=== PATIENT | female | born 1940 | race Caucasian/White ===

== ENCOUNTER 2016-07-29 21:11 | Emergency (ER) | payer MEDICARE | END 2016-07-29 23:39 | disposition home or self-care (01) | LOC: FER 21:11 | DX: B02.8 Zoster with other complications (principal); I83.93 Asymptomatic varicose veins of bilateral lower extremities; E11.9 Type 2 diabetes mellitus without complications; I10 Essential (primary) hypertension; Z88.0 Allergy status to penicillin; Z88.1 Allergy status to other antibiotic agents; Z85.71 Personal history of Hodgkin lymphoma; Z79.52 Long term (current) use of systemic steroids; Z79.84 Long term (current) use of oral hypoglycemic drugs; Z79.82 Long term (current) use of aspirin; Z79.02 Long term (current) use of antithrombotics/antiplatelets; Z79.899 Other long term (current) drug therapy; Z97.8 Presence of other specified devices | CPT/HCPCS: 99283 ==

== ENCOUNTER → 2020-03-30 | Day surgery (SDC) | payer OTHER ==
[~2020-03-30] MED LIST: AMARYL2 MG PO; ASPIRIN81 MG PO; AZITHROMYCIN250 MG PO; COZAAR50 MG PO; DIOVAN80 MG PO; FLONASE ALLER15.8 ML; ILOTYCIN1 GM OD; MUCINEX 600MG600 MG PO; NORCO 5-325 TA1 EACH PO; PLAVIX75 MG PO; PREDNISONE 20MG20 MG PO; PREVACID30 M1 PO; PROTONIX 40MG T40 MG PO; QUALAQUIN324 MG PO; SINGULAIR10 MG PO; SYMBICORT 80-10.2 GM INH; TICALAST NASAL1 EACH IN; TUSSIONEX PENN115 ML PO; VITAMIN B-121000 MC1 IM; VITAMIN D325 MC2 PO; WIXELA 100-501 EACH INH
[2020-03-30 08:43] LABS: BILIRUBIN - TOTAL 0.5 mg/dL (0.2-1.0); BUN/CREAT RATIO (CALC) 16.9 RATIO; CREATININE 1.3 mg/dL (0.51-0.95); GLOBULIN (CALCULATION) 3.2 g/dL; TOTAL PROTEIN 7.2 g/dL (6.4-8.2)
[2020-03-30 08:46] LABS: HCT 37.1 % (37.0-47.0); MCH 35.4 pg (25.0-31.0); MCHC 32.3 g/dL (32.0-36.0); MCV 109.4 fL (78.0-100.0); MPV 9.8 fL (6.0-9.5); RBC 3.39 M/uL (4.20-5.40); RDW 13.7 % (11.5-14.0); WBC 9.4 K/uL (4.0-10.5)
== END | disposition home or self-care (01) ==
LOC: FAS 06:50
PROVIDERS: Surgery
DX: K57.30 Diverticulosis of large intestine without perforation or abscess without bleeding (principal); K21.9 Gastro-esophageal reflux disease without esophagitis; K29.50 Unspecified chronic gastritis without bleeding; K64.1 Second degree hemorrhoids; K25.9 Gastric ulcer, unspecified as acute or chronic, without hemorrhage or perforation; K51.90 Ulcerative colitis, unspecified, without complications; E11.9 Type 2 diabetes mellitus without complications; I10 Essential (primary) hypertension; I35.9 Nonrheumatic aortic valve disorder, unspecified; E78.00 Pure hypercholesterolemia, unspecified; Z88.1 Allergy status to other antibiotic agents; Z88.0 Allergy status to penicillin; Z98.890 Other specified postprocedural states; Z98.84 Bariatric surgery status; Z90.710 Acquired absence of both cervix and uterus
CPT/HCPCS: 36415; 80053; 88305; J1100; J2704; J7120

== ENCOUNTER 2021-07-18 22:08 | Day surgery (SDCO) | payer MEDICARE ==
[~2021-07-18] VITALS: Ht 160 cm; Wt 53.2 kg
[2021-07-19 02:26] LABS: BILIRUBIN NEGATIVE (NEGATIVE); BLOOD TRACE-INTACT Ery/uL (NEGATIVE); CLARITY HAZY (CLEAR); COLOR YELLOW (YELLOW); GLUCOSE (U) NORMAL (NORMAL); LEUKOCYTES TRACE Leu/uL (NEGATIVE); NITRITE NEGATIVE (NEGATIVE); PROTEIN NEGATIVE (NEGATIVE); UROBILINOGEN 0.2 mg/dL (0.2-1.0)
[2021-07-19 02:33] LABS: BACTERIA 4+; URINARY WBC 20-50
[2021-07-19 02:51] LABS: ALBUMIN 3.2 g/dL (3.4-5.0); BILIRUBIN - TOTAL 0.5 mg/dL (0.2-1.0); BUN/CREAT RATIO (CALC) 18.1 RATIO; CREATININE 0.94 mg/dL (0.51-0.95); GLOBULIN (CALCULATION) 2.8 g/dL; POTASSIUM 3.5 mmol/L (3.5-5.1)
[2021-07-19 03:02] LABS: BASOPHIL 0.5 % (0-2); EOSINOPHIL 0.1 % (0-7); HCT 34.9 % (37.0-47.0); HGB 11.6 g/dl (12.5-16.0); LYMPHOCYTE 17.3 % (15-48); MCHC 33.2 g/dL (32.0-36.0); MCV 102.3 fL (78.0-100.0); MONOCYTE 12.9 % (0-12); MPV 10.3 fL (6.0-9.5); NEUTROPHIL 68.7 % (41-80); NRBC 0; PLT 376 K/uL (150-400); RBC 3.41 M/uL (4.20-5.40); WBC 14.8 K/uL (4.0-10.5)
[2021-07-19 07:39] LABS: C-REACTIVE PROTEIN 3.2 mg/dL (<=0.90)
[2021-07-19] MEDS ORDERED: ARICEPT 5MG TABL5 MG PO (10:10)
--- NOTE | 2021-07-19 16:10 | NUR ---
PT WILL D/C HOME WITH SPOUSE. PT. REQUESTED [facility] AND [facility] TO DELIVER A RW. CHOICE FORM SIGNED AND COPY GIVEN.
[2021-07-20 07:30] LABS: BASOPHIL 0.6 % (0-2); EOSINOPHIL 1.7 % (0-7); HCT 34.5 % (37.0-47.0); HGB 11.6 g/dl (12.5-16.0); LYMPHOCYTE 29.1 % (15-48); MCH 34.5 pg (25.0-31.0); MCHC 33.6 g/dL (32.0-36.0); MCV 102.7 fL (78.0-100.0); MONOCYTE 13.1 % (0-12); MPV 9.5 fL (6.0-9.5); NEUTROPHIL 55.2 % (41-80); NRBC 0; PLT 302 K/uL (150-400); RBC 3.36 M/uL (4.20-5.40); RDW 12.6 % (11.5-14.0); WBC 8.7 K/uL (4.0-10.5)
[2021-07-20 08:04] LABS: BUN/CREAT RATIO (CALC) 21.1 RATIO; CREATININE 0.95 mg/dL (0.51-0.95); POTASSIUM 3.6 mmol/L (3.5-5.1)
[2021-07-20] MEDS ORDERED: ACETAMINOPHEN500 M1 PO (09:28)
[2021-07-20] MEDS ORDERED: MACROBID100 MG PO (09:29)
== END 2021-07-20 10:27 | disposition home or self-care (01) ==
LOC: FER 22:08 → FMS 07-19 05:20
PROVIDERS: Emergency Medicine; Family Medicine; Nurse Practitioner Acute Care; ADMIT Internal Medicine
DX: M17.11 Unilateral primary osteoarthritis, right knee (principal); M25.461 Effusion, right knee; N30.00 Acute cystitis without hematuria; I12.9 Hypertensive chronic kidney disease with stage 1 through stage 4 chronic kidney disease, or unspecified chronic kidney disease; N18.30 Chronic kidney disease, stage 3 unspecified; D53.9 Nutritional anemia, unspecified; M71.21 Synovial cyst of popliteal space [Baker], right knee; D72.829 Elevated white blood cell count, unspecified; R73.9 Hyperglycemia, unspecified; I16.0 Hypertensive urgency; R01.1 Cardiac murmur, unspecified; F03.90 Unspecified dementia, unspecified severity, without behavioral disturbance, psychotic disturbance, mood disturbance, and anxiety; R63.4 Abnormal weight loss; Z85.9 Personal history of malignant neoplasm, unspecified; Z88.1 Allergy status to other antibiotic agents; Z88.0 Allergy status to penicillin; Z88.8 Allergy status to other drugs, medicaments and biological substances
CPT/HCPCS: 36415; 73560; 73700; 80048; 80053; 81001; 82607; 83036; 84439; 84443; 85025; 86140; 87076; 87088; 87186; 97162; 97166; 97530-GP; 97535; G0378; J0696; J0780; J1885; J2405